=== PATIENT | female | born 1945 | race Caucasian/White ===

== ENCOUNTER 2017-02-23 08:56 | Day surgery (SDC) | payer MEDICARE, BC ==
[2017-02-23] VITALS (17 sets, daily range): BP systolic 106–130; BP diastolic 54–66; PULSE 51–59; RESP 14–23; Ht 160 cm; Wt 57.1 kg
[~2017-02-23] VITALS: Ht 160 cm; Wt 57.1 kg
[~2017-02-23 08:56] MED LIST: MULTI PO
[2017-02-23] MEDS ORDERED: AMIO200T2 PO (10:48)
[2017-02-23] MEDS ORDERED: CARV3.1260 PO (10:48)
[2017-02-23] MEDS ORDERED: TICA90TA PO (10:48)
[2017-02-23] MEDS ORDERED: ASPI-664 PO (10:49)
[2017-02-23] MEDS ORDERED: LISI10TA2 PO (10:51)
[2017-02-23] MEDS ORDERED: ATOR80TA75 PO (10:51)
[2017-02-23 10:52] LABS: ADD SCAN DIFF NO
[2017-02-23 11:00] LABS: BASOPHILS % 0.8 % (0.0-2.0); EOSINOPHILS # 0.1 10^3/ul (0.0-0.5); EOSINOPHILS % 3.4 % (0.0-7.0); HEMOGLOBIN 12.6 g/dl (12.0-16.0); LYMPHOCYTES # 0.9 10^3/ul (0.8-2.9); LYMPHOCYTES % 24.8 % (15.0-51.0); MEAN CORPUSCULAR HEMOGLOBIN 28.7 pg (29.0-33.0); MEAN CORPUSCULAR HGB CONC 32.3 g/dl (32.0-37.0); MEAN CORPUSCULAR VOLUME 88.8 fl (82.0-101.0); MEAN PLATELET VOLUME 12.9 fl (7.4-10.4); MONOCYTE # 0.3 10^3/ul (0.3-0.9); MONOCYTES % 7.3 % (0.0-11.0); NEUTROPHIL # 2.3 10^3/ul (1.6-7.5); NEUTROPHILS % 63.4 % (39.0-77.0); PLATELET COUNT 151 10^3/UL (140-415); RED BLOOD COUNT 4.39 10^6/ul (4.20-5.40); RED CELL DISTRIBUTION WIDTH 14.2 % (11.5-14.5); WHITE BLOOD COUNT 3.6 10^3/ul (4.8-10.8)
[2017-02-23] MEDS ORDERED: SOD CHLORIDE 0.9% 1,000 ML IV SCH ×2 (11:00→14:31)
[2017-02-23 11:14] LABS: INR 0.93; PROTIME 12.5 Sec (12.2-14.2)
[2017-02-23 11:15] LABS: PARTIAL THROMBOPLASTIN TIME 29.5 Sec (25.0-35.0)
[2017-02-23 11:22] LABS: ALBUMIN 4.4 g/dl (3.3-4.9); CHLORIDE 108 mmol/L (97-110)
[2017-02-23 11:25] LABS: ALBUMIN/GLOBULIN RATIO 1.37; ANION GAP 14 (8-16); ASPARTATE AMINO TRANSFERASE 38 IU/L (15-46); CARBON DIOXIDE 24 mmol/L (21-31); CHOLESTEROL 91 mg/dl (100-200); TOTAL PROTEIN 7.6 g/dl (6.1-8.1)
[2017-02-23 11:26] LABS: ALANINE AMINOTRANSFERASE 39 IU/L (13-69); ALKALINE PHOSPHATASE 58 IU/L (42-121); CHOL/HDL RATIO 1.9 RATIO; CREATINE KINASE 67 IU/L (23-200); GLUCOSE 92 mg/dl (70-220); HDL CHOLESTEROL 46 mg/dl (33-92); TRIGLYCERIDES 79 mg/dl (0-149)
[2017-02-23 11:32] LABS: CK-MB 0.65 ng/ml (0.0-2.4)
[2017-02-23 11:33] LABS: BLOOD UREA NITROGEN 17 mg/dl (7-20); CALCIUM 9.1 mg/dl (8.4-10.2); CREATININE 0.76 mg/dl (0.44-1.00); SODIUM 142 mmol/L (135-144)
[2017-02-23 11:38] LABS: TROPONIN-I < 0.012 ng/ml (0.00-0.12)
[2017-02-23] MEDS ORDERED: HEPARIN 1000 UNITS/NS (A-LINE) 1,000 ML ONE (13:08)
[2017-02-23] MEDS ORDERED: MIDAZOLAM 1 MG/ML 2 ML INJ ONE (13:08)
[2017-02-23] MEDS ORDERED: IODIXANOL LOCM 100 ML BTL ONE (13:08)
[2017-02-23] MEDS ORDERED: HEPARIN 1000 UNITS/ML 10 ML INJ ONE (13:08)
[2017-02-23] MEDS ORDERED: FENTAnyl 50 MCG/ML VIAL ONE (13:08)
[2017-02-23] MEDS ORDERED: VERAPAMIL 5 MG INJ ONE (13:09)
[2017-02-23] MEDS ORDERED: SOD CHLORIDE 0.9% 500 ML ONE (13:09)
[2017-02-23] MEDS ORDERED: NITROGLYCERIN (IC) 100 MCG/ML INJ ONE (13:09)
[2017-02-23] MEDS ORDERED: ASPIRIN 325 MG TAB ONE (13:11)
[2017-02-23] MEDS ORDERED: TICAGRELOR 90 MG TABLET ONE (13:11)
--- NOTE | 2017-02-23 15:09 | SP ---
DATE OF PROCEDURE: 02/23/2017 PROCEDURE: 1. Left heart catheterization and selective right and left coronary angiography. 2. Left ventriculogram and LVEDP measurement. 3. Aortic root angiogram. SURGEON: Delvis Chilel MD INDICATIONS: A 71-year-old female with history of anterior ST elevation myocardial infarction 4 mon ths ago, underwent PCI of the LAD. The patient had intermittent chest pain and also had a stress te st which showed LAD ischemia. Because of the above, she was recommended to undergo diagnostic angio graphy. The patient also has aortic insufficiency. So, I will also do aortic root angiogram to leelee hudson for the aortic insufficiency. DESCRIPTION OF PROCEDURE: Written informed consent, risks and benefits discussed with the patient i n detail. I also discussed with the patient's granddaughter. Risks included infection, vascular co mplication, bleeding complication, MO, stroke, arrhythmia, , renal failure, etc., which were di scussed with the patient. The patient was brought to the slab lifting engineer and placed in the supine position . Right and left groins prepped and draped in a sterile fashion. Right groin area was anesthetized with 1% lidocaine. Using the Seldinger technique, a 6-Lao sheath was placed in the right femoral artery. Right femoral angiogram was performed. JR4 catheter was advanced and engaged in the left ventricle. Hemodynamics recorded. Pullback aortic pressure was measured. It was engaged in the ri ght coronary artery and angiogram was obtained. Then, a JL3.5 diagnostic catheter was advanced and engaged in the left main coronary artery and angiogram was obtained. Then, the pigtail was advanced and engaged in the left ventricle. LV gram was performed. Then it was placed in the aorta, angiog gi was performed. Right femoral angiogram had already been performed and Perclose was successfully deployed. The patient tolerated the procedure without complications. IMMEDIATE COMPLICATIONS: None. TOTAL CONTRAST USED: 90 mL. FINDINGS: 1. Left main coronary artery is a very short vessel with no significant stenosis. 2. Left anterior descending artery proximally has about 30% stenosis. At the proximal to mid has 3 stents, all of them are patent. At proximal to mid area at the first stent, there is an area what appeared to be probably old perforation, which is well filled with no flow-limiting obstruction. Di agonal artery at the site of the stent is also widely patent as well. Review of the old films did n ot show similar perforation at the last angiogram; however, this does not appear to be causing any o bstruction. 3. Left circumflex artery is one large tortuous vessel, which appeared to be patent. 4. Right coronary artery dominant, appeared to be normal. 5. LVEDP is 14. No significant gradient across the aortic valve noted. 6. Aortic root angiogram showed moderate aortic insufficiency. CONCLUSION: Coronary angiography shows patent stents and moderate aortic insufficiency. RECOMMENDATIONS: We will continue medical therapy. We will order a chest CT to followup the chest CT abnormality that was noted previously. Dictated By: DELVIS CHILEL MD AV/LUCERO Conf#: [id number] DID#: [id number] CC: ;*[facility]*
--- NOTE | 2017-02-23 15:46 | RADRPT ---
PROCEDURE: CT CHEST WITHOUT CONTRAST CLINICAL INDICATION: Pulmonary nodule TECHNIQUE: Volumetrically acquired images of the thorax obtained without intravenous contrast were reformatted in the axial, coronal, and sagittal planes. CTDI = 5.4 mGy; DLP = 197 mGy-cm. One or m ore of the following dose reduction technique were used: Automatic exposure control, adjustment of t he mA and/or kV according to patient size, and use of iterative reconstruction technique. COMPARISON: 11/01/2016. FINDINGS: LOWER NECK AND CHEST WALL: Normal. AIRWAYS: The trachea and large airways are normal. Minimal bronchial wall thickening is seen. LUNGS: Previously demonstrated ground-glass opacities seen in the right lung apex has resolved. Occ asional centrilobular micronodules seen in the right upper lung, for example, series 4 image 27, are stable from prior study and consistent with prior bronchiolitis. No suspicious nodules, masses, or consolidation. PLEURA: Unremarkable. No pleural thickening or effusions. MEDIASTINUM: No mediastinal mass. LYMPH NODES: No significant axillary, hilar, or mediastinal lymphadenopathy by CT size criteria. CARDIAC: Mild cardiomegaly. No pericardial effusion or thickening. VASCULAR: The aorta and main pulmonary artery are normal in caliber. Aortic and coronary atheroscl erotic calcifications are present. A left anterior descending arterial stent is seen. OSSEOUS: No suspicious osseous lesions. Scattered minimal degenerative changes of the thoracic spin e is visualized. Limited evaluation of the upper abdomen demonstrates a prior cholecystectomy. IMPRESSION: 1. Interval resolution of the previously demonstrated right apical ground-glass opacities consistent with resolving atelectasis/alveolitis. Occasional centrilobular micronodules are stable from prior study, related to bronchiolitis. No suspicious nodules or masses. 2. Minimal bronchial wall thickening may be sequela of bronchitis, asthma, or other nonspecific air way inflammation. 3. Cardiomegaly with aortic and coronary atherosclerosis. RPTAT:PP .Bucky Pittman MD, MD Date Time Electronically viewed and signed by .Bucky Pittman MD, MD on 02/23/2017 15:46 .V/
== END 2017-02-23 18:40 | disposition home or self-care (01) ==
LOC: SDS 08:56
PROVIDERS: ATTEND Internal Medicine Interventional Cardiology
DX: I25.10 Atherosclerotic heart disease of native coronary artery without angina pectoris (principal); Z95.5 Presence of coronary angioplasty implant and graft; I35.1 Nonrheumatic aortic (valve) insufficiency
CPT/HCPCS: 71250; 80053; 80061; 82550; 82553; 84484; 85025; 85610; 85730; 93458; C1887; C1894; J1644; J2250; J3010; J7040; Q9967